=== PATIENT | male | born 1950 | race Caucasian/White ===

== ENCOUNTER → 2021-09-07 | Outpatient (CLI) | payer MEDICARE, OTHER, SELFPAY ==
--- NOTE | 2021-09-07 15:20 | RAD_ITS ---
EXAM: XR SACRUM AND COCCYX, 2 OR MORE VIEWS CLINICAL INDICATION: SACROCOCCYGEAL PAIN TECHNIQUE: Frontal and lateral views of the sacrum and coccyx. This report was created using [employer] report generation technology. COMPARISON: None. FINDINGS: SACRUM/COCCYX: Unremarkable. No displaced fracture. No destructive or sclerotic lesions. Note that overlapping bowel shadows may however obscure fine detail in the frontal view. Sacroiliac joints are unremarkable. SOFT TISSUES: Unremarkable. No soft tissue swelling or gas. RAD/Sacrum-Coccyx min 2 Views IMPRESSION: Unremarkable sacro-coccygeal spine. Electronically Signed: Terry Pittman MD at 9:59 EDT ,
== END | disposition home or self-care (01) ==
PROVIDERS: PCP Internal Medicine; Referring Provider Internal Medicine; Visit Provider Internal Medicine
DX: M53.3 Sacrococcygeal disorders, not elsewhere classified (principal); R01.1 Cardiac murmur, unspecified
CPT/HCPCS: 72220

== ENCOUNTER → 2021-09-21 | Outpatient (CLI) | payer MEDICARE, OTHER, SELFPAY ==
--- NOTE | 2021-09-21 14:31 | ECHOD_ITS ---
Reason For Study: Murmur Procedure This was a 2D Doppler, Color Flow transthoracic echocardiogram. Exam performed in department. Left Ventricle Normal LV size. Left ventricular systolic function is normal. The estimated ejection fraction is 60 %. Stage 1 diastolic dysfunction. No regional wall motion abnormalities noted. Right Ventricle Normal RV size. Normal systolic function. Atria Normal left atrium. Normal right atrium. Hypermobile atrial septum. Bubble contrast study negative for right to left interatrial shunt. Mitral Valve Normal mitral valve. Tricuspid Valve Normal tricuspid valve. Aortic Valve Normal aortic valve. Trisinus/trileaflet aortic valve. Pulmonic Valve Normal pulmonic valve. Great Vessels Normal aortic root. The pulmonary artery is normal size. Normal inferior vena cava. Pericardium/Pleural No pericardial effusion. Medication Performed a rapid injection of agitated mix of 9 cc saline and 1cc air to assess for atrial septal defect. MMode/2D Measurements & Calculations LVIDd: 4.7 cm IVSd: 0.77 cm Ao root diam: 3.3 cm LVIDs: 3.2 cm LVPWd: 0.80 cm RVDd: 3.5 cm FS: 32.1 % LAV(MOD-bp): 48.1 ml LVAd ap4: 28.0 cm2 SV(MOD-sp4): 51.3 ml LAV(MOD-bp) Indexed: 24.0 ml/m2 LVLd ap4: 8.0 cm LAV(MOD-sp2): 53.9 ml EDV(MOD-sp4): 81.0 ml LAV(MOD-sp4): 38.1 ml EDV(sp4-el): 82.6 ml LVAs ap4: 14.7 cm2 LVLs ap4: 6.2 cm ESV(MOD-sp4): 29.6 ml ESV(sp4-el): 29.2 ml EF(MOD-sp4): 63.4 % EF(sp4-el): 64.6 % SV(sp4-el): 53.4 ml LA A4 area: 15.4 cm2 LA dimension(2D): 3.8 cm RA A4 area: 12.3 cm2 Doppler Measurements & Calculations MV E max lavell: 73.6 cm/sec Lat Peak E' Lavell: 11.1 cm/sec Med Peak E' Lavell: 7.0 cm/sec MV A max lavell: 78.6 cm/sec E/E' lat: 6.6 E/E' med: 10.5 MV E/A: 0.94 Ao V2 max: 144.6 cm/sec LV V1 max: 115.2 cm/sec PA V2 max: 90.3 cm/sec Ao max P.4 mmHg LV V1 max P.3 mmHg Ao V2 mean: 91.9 cm/sec Ao mean P.9 mmHg Ao V2 VTI: 29.8 cm ECHO/Echo Complete Interpretation Summary Hypermobile atrial septum. Normal LV size. Left ventricular systolic function is normal. The estimated ejection fraction is 60 %. Bubble contrast study negative for right to left interatrial shunt. Stage 1 diastolic dysfunction. Ordering Physician: Venessa Simmons Referring Physician: Venessa Simmons Performed By: Edel Villegas, ADEEL, RVT
== END | disposition home or self-care (01) ==
PROVIDERS: PCP Internal Medicine; Referring Provider Internal Medicine; Visit Provider Internal Medicine
DX: R01.1 Cardiac murmur, unspecified (principal); M53.3 Sacrococcygeal disorders, not elsewhere classified
CPT/HCPCS: 93306

== ENCOUNTER → 2024-03-12 | Outpatient (CLI) | payer MEDICARE, SELFPAY ==
--- NOTE | 2024-03-14 16:11 | STRESSREP ---
Stress Test Report Date: 03/12/2024 Procedure: Exercise tolerance test Indications: Abnormal CTA Consent: Per the patient Procedure: The patient exercised on a Steve protocol for 7 minutes achieving a peak heart rate of 173 bpm (118% predicted maximal heart rate) with a peak blood pressure 222/94 mmHg and a peak MET capacity of approximately 10.1 MET's. The baseline ECG demonstrated normal sinus rhythm. The peak exercise ECG demonstrated sinus tachycardia with significant baseline artifact. There appears to be upsloping ST depressions. No definite evidence of significant ischemia. [There were no cardiac dysrhythmias pretest, during exercise, or recovery]. The functional capacity was considered excellent for age. The patient had no complaint of chest discomfort during exercise or recovery. The examination was discontinued secondary to achieving target heart rate. Impression: 1. Technically adequate (percent predicted maximal heart rate greater than 85%) exercise tolerance test 2. Stress test is negative for exercise-induced chest pain. 3. Stress test test is negative for exercise-induced EKG changes of ischemia. 4. Functional capacity is excellent for age This note was generated with [employer] software. It may contain incorrect words, spelling, and punctuation that were not noted in checking the note before signing.
== END | disposition home or self-care (01) ==
PROVIDERS: PCP Internal Medicine; Referring Provider Internal Medicine; Visit Provider Internal Medicine
DX: R93.89 Abnormal findings on diagnostic imaging of other specified body structures (principal); R06.02 Shortness of breath
CPT/HCPCS: 93017

== ENCOUNTER → 2025-01-23 | Outpatient (CLI) | payer MEDICARE, SELFPAY ==
[2025-01-23 07:53] LABS: Mucous, Urine 0 SEEN /hpf (<or=2+); Red Blood Cells-Urine 0 SEEN /hpf (0-5); Squamous Epithelial Cells - UA 0 SEEN /hpf (0-5)
[2025-01-23 10:12] LABS: Color, Urine Yellow (Yellow); Glucose, Dipstick Normal (Normal); Ketone-Dipstick 5 mg/dl (Negative); Leukocyte Esterase-Dipstick Negative /ul (Negative); Nitrite-Dipstick Negative (Negative); Occult Blood-Urine Negative /ul (Negative); Protein-Dipstick Negative (Negative); Specific Gravity, Urine 1.025 (1.002-1.030); Urine Bilirubin Dipstick Negative (Negative)
[2025-01-23 10:24] LABS: Hematocrit 43.6 % (40-54); Hemoglobin 14.5 g/dL (13.0-16.5); Immature Granulocytes Count 0.010 X10^3/uL (0.0-0.0); Mean Corp Hgb Conc 33.3 g/dL (32-36); Mean Corpuscular Volume 92.0 fL (80-94); Mean Platelet Vol. 10.9 fl (6.2-12.0); NRBC Flagged by Analyzer 0 % (0-5); Platelet Count 207 K/mm3 (150-450); RBC Distribution Width CV 13.5 % (11.6-14.6); RBC Distribution Width SD 46.1 fl (35.1-43.9); Red Blood Count 4.74 M/mm3 (4.6-6.2); White Blood Count 6.6 K/mm3 (4.4-11.0)
[2025-01-23 11:06] LABS: AST(SGOT) 20 U/L (<=37); Alanine Aminotransfer ALT/SGPT 16 U/L (<=46); Albumin, Serum 4.0 g/dL (3.4-4.8); Alkaline Phosphatase 63 U/L (40-129); Anion Gap 11 (5-15); BUN 24 mg/dL (4-19); BUN/Creat Ratio 18.5 RATIO (10-20); Calcium,Total 9.3 mg/dL (7.6-11.0); Carbon Dioxide 26.5 mmol/L (21.0-32.0); Chloride 104 mmol/L (98-108); Cholesterol 225 mg/dL (<=200); Globulin 3.0 g/dL (2.2-4.2); Glucose 93 mg/dL (70-99); Hepatitis C Antibody Nonreactive (Nonreactive); Low Density Lipoprotein Calc. 153 mg/dL; Potassium 4.2 mmol/L (3.3-5.1); Triglycerides 57 mg/dL; Very Low Density Lipoprotein 11 mg/dL (5-40); Vitamin D,25 Hydroxy 55.6 ng/mL (30-100); cholesterol:hdl ratio screen 3.62
[2025-01-23 11:40] LABS: Creatinine, Urine (random) 161.00 mg/dL (39.00-259.00)
[2025-01-23 12:02] LABS: Microalbumin,Random Urine < 12.0 mg/L (<20 mg/L)
[2025-01-26 15:08] LABS: PSA, Total 3.2 ng/mL (0.0-4.0)
== END | disposition home or self-care (01) ==
LOC: MTLAB 07:48
PROVIDERS: PCP Internal Medicine; Referring Provider Internal Medicine; Visit Provider Internal Medicine
DX: E78.5 Hyperlipidemia, unspecified (principal); R73.01 Impaired fasting glucose; E55.9 Vitamin D deficiency, unspecified; Z12.5 Encounter for screening for malignant neoplasm of prostate
CPT/HCPCS: 36415; 80053; 80061; 81001; 82043; 82306; 82570; 84153; 84443; 85025; 86803